=== PATIENT | male | born 1940 | race Caucasian/White ===

== ENCOUNTER → 2017-05-18 | Outpatient (CLI) | payer MEDICARE, OTHER ==
[2017-05-18 14:38] LABS: Hematocrit 37.8 % (37.0-53.0); Hemoglobin 13.4 g/dL (13.5-17.5); Mean Corpuscular HGB 32.1 pg (26.0-34.0); Mean Corpuscular HGB Conc 35.4 g/dL (31.5-36.5); Mean Corpuscular Volume 90 fL (80-100); Mean Platelet Volume 9.2 fL (9.1-12.4); Platelet Count 161 K/mm3 (150-400); RDW Coefficient Variation 12.9 % (11.7-14.2); RDW Standard Deviation 42.2 fL (35.1-46.3); Red Blood Cell Count 4.18 M/mm3 (4.30-5.90); White Blood Cell Count 7.11 K/mm3 (4.00-11.30)
[2017-05-18 14:43] LABS: Alanine Aminotransfer (ALT/SGP 32 U/L (12-78); Albumin, Blood 3.7 g/dL (3.4-5.0); Albumin/Globulin Ratio 0.9 (0.8-1.8); Alk Phos 81 U/L (40-126); Anion Gap 8 mmol/L (6-16); Aspartate Aminotrans (AST/SGOT 33 U/L (12-37); Bilirubin, Total 0.8 mg/dL (0.1-1.0); Blood Urea Nitrogen 12 mg/dL (8-24); Bun/Creatinine Ratio 15.4 (12.0-20.0); CO2, Blood 30 mmol/L (21-32); Calcium, Blood 9.2 mg/dL (8.5-10.1); Chloride, Blood 99 mmol/L (98-108); Creatinine, Blood 0.78 mg/dL (0.60-1.20); Globulin, Blood 4.1 g/dL (2.2-4.0); Glomerular Filtration Rate >60 (60-); Glucose, Blood 98 mg/dL (70-99); Sodium, Blood 137 mmol/L (136-145); Total Protein, Blood 7.8 g/dL (6.4-8.2)
[2017-05-18 15:24] LABS: BAND PERCENT MAN 9 % (0-8); BASOPHILS PERCENT MAN 0 % (0-2); EOSINOPHILS ABSOLUTE MAN 0.56 K/mm3 (0.00-0.68); EOSINOPHILS PERCENT MAN 8 % (0-6); LYMPHOCYTES ABSOLUTE MAN 0.78 K/mm3 (0.84-5.20); LYMPHOCYTES PERCENT MAN 11 % (21-46); MONOCYTES ABSOLUTE MAN 0.63 K/mm3 (0.16-1.47); MONOCYTES PERCENT MAN 9 % (4-13); NEUTROPHILS ABSOLUTE MAN 5.11 K/mm3 (1.96-9.15); SEG NEUTROPHILS PERCENT MAN 63 % (41-73); TOTAL CELLS COUNTED 100
== END ==
LOC: LAB EV 14:28
PROVIDERS: Physician Assistant
DX: R21 Rash and other nonspecific skin eruption (principal)
CPT/HCPCS: 80053; 85025

== ENCOUNTER 2023-07-25 13:59 | Observation (INO) | payer MEDICARE, OTHER ==
[~2023-07-25] VITALS: Ht 182.9 cm; Wt 90.7 kg
[~2023-07-25 13:59] MED LIST: LOSA50 PO
[2023-07-25] MEDS ORDERED: NS 1,000 ML IV SCH (14:20)
[2023-07-25] MEDS ORDERED: Metoprolol Tartrate 1 MG/ML 5 ML VIAL IV ONE (14:20)
[2023-07-25] MEDS ORDERED: Magnesium Sulf 2 GM/Water 50ML 50 ML IV ONE (14:20)
[2023-07-25 14:58] LABS: BASOPHILS ABSOLUTE AUTO 0.07 K/mm3 (0.00-0.23); BASOPHILS PERCENT AUTO 1 % (0-2); EOSINOPHILS ABSOLUTE AUTO 0.14 K/mm3 (0.00-0.68); EOSINOPHILS PERCENT AUTO 1 % (0-6); Hematocrit 37.6 % (37.0-53.0); Hemoglobin 13.2 g/dL (13.5-17.5); IMMATURE GRAN ABSOLUTE AUTO 0.04 K/mm3 (0.00-0.10); IMMATURE GRAN PERCENT AUTO 0 % (0-1); LYMPHOCYTES ABSOLUTE AUTO 1.88 K/mm3 (0.84-5.20); LYMPHOCYTES PERCENT AUTO 18 % (21-46); MONOCYTES PERCENT AUTO 11 % (4-13); Mean Corpuscular HGB 31.8 pg (26.0-34.0); Mean Corpuscular HGB Conc 35.1 g/dL (31.5-36.5); Mean Corpuscular Volume 91 fL (80-100); Mean Platelet Volume 10.8 fL (9.1-12.4); NEUTROPHILS PERCENT AUTO 68 % (41-73); Platelet Count 183 K/mm3 (150-400); RDW Coefficient Variation 12.7 % (11.7-14.2); Red Blood Cell Count 4.15 M/mm3 (4.30-5.90); White Blood Cell Count 10.23 K/mm3 (4.00-11.30)
[2023-07-25 15:07] LABS: Albumin, Blood 3.8 g/dL (3.4-5.0); Albumin/Globulin Ratio 1.1 (0.8-1.8); Bilirubin, Total 1.2 mg/dL (0.1-1.0); Bun/Creatinine Ratio 20.2 (12.0-20.0); Calcium, Blood 9.7 mg/dL (8.5-10.1); Creatinine, Blood 0.94 mg/dL (0.60-1.20); Globulin, Blood 3.4 g/dL (2.2-4.0); Potassium, Blood 3.6 mmol/L (3.5-5.5); Total Protein, Blood 7.2 g/dL (6.4-8.2)
[2023-07-25] MEDS ORDERED: ROSU10TA PO ×2 (17:19→20:37)
[2023-07-25] MEDS ORDERED: METO25ER PO (17:20)
[2023-07-25] MEDS ORDERED: Ondansetron HCl 2 MG / ML 2ML Vial IV PRN (18:30)
[2023-07-25] MEDS ORDERED: Acetaminophen 325 MG TABLET PO PRN (18:30)
[2023-07-25] MEDS ORDERED: Potassium Chloride 20 MEQ TabCR PO ONE (19:00)
[2023-07-25 20:31] VITALS: BP 149/81
[2023-07-25] MEDS ORDERED: [UNRECOGNIZED DRUG - OTHER] TOP (20:35)
[2023-07-25] MEDS ORDERED: ASPI81CH PO (20:37)
[2023-07-25] MEDS ORDERED: CHONDROITIN SU100 G1 MC (20:38)
[2023-07-25] MEDS ORDERED: Acerola C500 MG PO (20:39)
[2023-07-25] MEDS ORDERED: Rosuvastatin Calcium 10 MG Tab PO SCH (21:00)
[2023-07-26 05:04] VITALS: BP 118/77
--- NOTE | 2023-07-26 05:34 | NUR ---
PT A&OX4 AND ANSWERS QUESTIONS APPROPRIATELY. PT ARRIVED TO THE FLOOR AROUND 2100 AND WAS ORIENTED TO THE ROOM AND THE CALL LIGHT. PT ABLE TO AMBULATE INDEPENDENTLY TO THE BR, SBA SUPERVISION UTELIZED. VSS, NO COMPLAINTS OF CP/PRESSURE OR SOB. NO ACUTE EVENTS AT THIS TIME. PT LEFT IN A POSITION OF SAFETY WITH PROPER FALL PRECAUTIONS IN PLACE AND CALL LIGHT IN REACH.
[2023-07-26 07:35] VITALS: BP 140/80
[2023-07-26] MEDS ORDERED: Enoxaparin 40 MG/0.4 ML SYR SC SCH (09:00)
[2023-07-26] MEDS ORDERED: Metoprolol Succinate 25 MG TABCR PO SCH (09:00)
[2023-07-26] MEDS ORDERED: Losartan Potassium 50 MG Tab PO SCH (09:00)
[2023-07-26 15:31] VITALS: BP 144/84
--- NOTE | 2023-07-26 17:03 | NUR ---
SHIFT REPORT PATIENT A/OX4, INDEPENDENT WITH AMBULATION IN ROOM. PATIENT COMLAINING OF /10 INTERMITTENT CHEST DISCOMFORT THROUGHOUT SHIFT, BUT DENIES NEED FOR PAIN MEDS. ECHOCARDIOGRAM OBTAINED TODAY, RESULTS PENDING. ATTENDING STATED POSSIBLE DC TOAY IF ECHO RESULTS CLEARED, BUT POSSIBLY IN AM. NO OTHER CONCERNS AT THIS TIME. PATIENT RESTING IN BED WITH AT BEDSIDE.
[2023-07-26 20:38] VITALS: BP 112/73
--- NOTE | 2023-07-27 04:04 | NUR ---
SHIFT SUMMARY: Pt is admitted for new onset of afib and is full code. Is alert and able to make needs known. ADLs have been independent. Denies pain or discomfort when asked. Telly reports sinus silke at 50.
[2023-07-27 05:25] VITALS: BP 118/72
[2023-07-27 07:28] VITALS: BP 127/78
[2023-07-27] MEDS ORDERED: Metoprolol Succinate 25 MG TABCR PO SCH (09:00)
--- NOTE | 2023-07-27 13:09 | NUR ---
PT AOX4 AND COOPERATIVE OF CARE DISCHARGED AT 1240 WITH TO TRANSPORT. NO DISTRESS NOTED. PT DENIED ANY PAIN AND WAS ABLE TO AMBULATE INDEPENDENTLY. ALL PAPER WORK WAS REVIEWED AND EDUCTIONAL MATERIAL SENT WITH PT. PT ESCORTED DOWN VIA WHEEL CHAIR TO ENTRANCE.
== END 2023-07-27 13:03 | disposition home or self-care (01) ==
LOC: ER 13:59 → MEDS 14:00
PROVIDERS: Emergency Medicine; ADMIT Internal Medicine
DX: I48.91 Unspecified atrial fibrillation (principal); R07.89 Other chest pain; I10 Essential (primary) hypertension; E78.5 Hyperlipidemia, unspecified; Z79.899 Other long term (current) drug therapy
CPT/HCPCS: 36415; 71045; 80053; 83735; 83880; 84443; 84484; 85025; 85379; 93005; 93010; 93306; 96361; 96372; 96374; 99285-25; A9270; G0378; J1650; J7030

== ENCOUNTER 2023-08-12 07:52 | Emergency (ER) | payer MEDICARE, OTHER ==
[~2023-08-12] VITALS: Ht 182.9 cm; Wt 90.7 kg
[~2023-08-12 07:52] MED LIST changes: +ASPI81CH PO; +Acerola C500 MG PO; +CHONDROITIN SU100 G1 MC; +METO25ER PO; +ROSU10TA PO; +[UNRECOGNIZED DRUG - OTHER] TOP
[2023-08-12] MEDS ORDERED: ELIQUIS5 M3 PO (08:04)
[2023-08-12] MEDS ORDERED: TRIDERM28.4 GM TOP (08:06)
[2023-08-12 08:31] LABS: BASOPHILS ABSOLUTE AUTO 0.08 K/mm3 (0.00-0.23); BASOPHILS PERCENT AUTO 2 % (0-2); EOSINOPHILS ABSOLUTE AUTO 0.13 K/mm3 (0.00-0.68); EOSINOPHILS PERCENT AUTO 2 % (0-6); Hematocrit 39.5 % (37.0-53.0); Hemoglobin 13.4 g/dL (13.5-17.5); IMMATURE GRAN ABSOLUTE AUTO 0.01 K/mm3 (0.00-0.10); IMMATURE GRAN PERCENT AUTO 0 % (0-1); LYMPHOCYTES ABSOLUTE AUTO 1.39 K/mm3 (0.84-5.20); LYMPHOCYTES PERCENT AUTO 26 % (21-46); MONOCYTES ABSOLUTE AUTO 0.48 K/mm3 (0.16-1.47); MONOCYTES PERCENT AUTO 9 % (4-13); Mean Corpuscular HGB 31.2 pg (26.0-34.0); Mean Corpuscular HGB Conc 33.9 g/dL (31.5-36.5); Mean Corpuscular Volume 92 fL (80-100); Mean Platelet Volume 10.7 fL (9.1-12.4); NEUTROPHILS ABSOLUTE AUTO 3.35 K/mm3 (1.96-9.15); NEUTROPHILS PERCENT AUTO 62 % (41-73); Platelet Count 188 K/mm3 (150-400); RDW Standard Deviation 40.5 fL (35.1-46.3); White Blood Cell Count 5.44 K/mm3 (4.00-11.30)
[2023-08-12 09:06] LABS: Albumin, Blood 3.8 g/dL (3.4-5.0); Bilirubin, Total 0.9 mg/dL (0.1-1.0); Bun/Creatinine Ratio 15.4 (12.0-20.0); Calcium, Blood 9.3 mg/dL (8.5-10.1); Creatinine, Blood 0.84 mg/dL (0.60-1.20); Globulin, Blood 3.7 g/dL (2.2-4.0); Potassium, Blood 3.6 mmol/L (3.5-5.5); Total Protein, Blood 7.5 g/dL (6.4-8.2)
[2023-08-12] MEDS ORDERED: Acetaminophen 500 MG Tab PO ONE (09:40)
[2023-08-12] MEDS ORDERED: Prochlorperazine Edisylate 10 mg Vial IV ONE (10:55)
[2023-08-12 11:57] VITALS: BP 124/69
== END 2023-08-12 11:58 | disposition home or self-care (01) ==
LOC: ER 07:52
PROVIDERS: Nurse Practitioner
DX: R07.2 Precordial pain (principal); R51.9 Headache, unspecified; I10 Essential (primary) hypertension; Z87.891 Personal history of nicotine dependence; I48.91 Unspecified atrial fibrillation; Z79.899 Other long term (current) drug therapy; Z91.038 Other insect allergy status; Z91.048 Other nonmedicinal substance allergy status
CPT/HCPCS: 70450; 71046; 80053; 84484; 85025; 93005; 93010; 99285-25; A9270

== ENCOUNTER 2024-09-10 11:48 | Emergency (ER) | payer MEDICARE, OTHER ==
[~2024-09-10] VITALS: Ht 182.9 cm; Wt 90.7 kg
[~2024-09-10 11:48] MED LIST changes: +ELIQUIS5 M3 PO; +TRIDERM28.4 GM TOP
[2024-09-10 12:47] LABS: BASOPHILS ABSOLUTE AUTO 0.07 K/mm3 (0.00-0.23); BASOPHILS PERCENT AUTO 1 % (0-2); EOSINOPHILS ABSOLUTE AUTO 0.14 K/mm3 (0.00-0.68); EOSINOPHILS PERCENT AUTO 2 % (0-6); Hematocrit 40.0 % (37.0-53.0); Hemoglobin 13.4 g/dL (13.5-17.5); IMMATURE GRAN ABSOLUTE AUTO 0.02 K/mm3 (0.00-0.10); IMMATURE GRAN PERCENT AUTO 0 % (0-1); LYMPHOCYTES ABSOLUTE AUTO 1.45 K/mm3 (0.84-5.20); LYMPHOCYTES PERCENT AUTO 24 % (21-46); MONOCYTES ABSOLUTE AUTO 0.78 K/mm3 (0.16-1.47); MONOCYTES PERCENT AUTO 13 % (4-13); Mean Corpuscular HGB Conc 33.5 g/dL (31.5-36.5); Mean Corpuscular Volume 91 fL (80-100); NEUTROPHILS ABSOLUTE AUTO 3.66 K/mm3 (1.96-9.15); NEUTROPHILS PERCENT AUTO 60 % (41-73); NRBC ABSOLUTE 0.00 K/mm3 (0.00-0.02); NRBC Auto 0.0 /100 WBC (0.0-0.2); Platelet Count 176 K/mm3 (150-400); RDW Coefficient Variation 12.5 % (11.7-14.2); RDW Standard Deviation 41.5 fL (35.1-46.3)
[2024-09-10 13:49] LABS: Alanine Aminotransfer (ALT/SGP 31.0 U/L (12-78); Albumin, Blood 3.5 g/dL (3.4-5.0); Albumin/Globulin Ratio 0.9 (0.8-1.8); Anion Gap 6.0 mmol/L (3-11); Aspartate Aminotrans (AST/SGOT 37.0 U/L (12-37); Bilirubin, Total 1.1 mg/dL (0.1-1.0); Blood Urea Nitrogen 12.0 mg/dL (8-24); CO2, Blood 30.0 mmol/L (21-32); Calcium, Blood 8.9 mg/dL (8.5-10.1); Chloride, Blood 107.0 mmol/L (98-108); Creatinine, Blood 0.78 mg/dL (0.60-1.20); Globulin, Blood 4.1 g/dL (2.2-4.0); Glucose, Blood 94.0 mg/dL (70-99); Potassium, Blood 4.3 mmol/L (3.5-5.5); Sodium, Blood 139.0 mmol/L (136-145); Thyroid Stimulating Hormone 2.15 uIU/mL (0.360-4.800); Total Protein, Blood 7.6 g/dL (6.4-8.2)
[2024-09-10] MEDS ORDERED: EUTHYROX50 MC1 PO (15:07)
[2024-09-10 17:45] VITALS: BP 131/75
== END 2024-09-10 17:53 | disposition home or self-care (01) ==
LOC: ER 11:48
PROVIDERS: Student in an Organized Health Care Education/Training Program
DX: R42 Dizziness and giddiness (principal); R00.1 Bradycardia, unspecified; R51.9 Headache, unspecified; I10 Essential (primary) hypertension; I48.91 Unspecified atrial fibrillation; Z91.030 Bee allergy status; Z91.048 Other nonmedicinal substance allergy status; Z79.01 Long term (current) use of anticoagulants; Z79.899 Other long term (current) drug therapy; Z87.891 Personal history of nicotine dependence
CPT/HCPCS: 71045; 80053; 84443; 84484; 85025; 93005; 93010; 99284-25